=== PATIENT | female | born 1980 | race Caucasian/White ===

== ENCOUNTER 2020-01-29 10:18 | Day surgery (SDC) | payer MEDICAID, OTHER ==
[~2020-01-29] VITALS: Ht 149.9 cm; Wt 35.0 kg
[~2020-01-29 10:18] MED LIST: ACET325T14 PO; IBUP-1223 PO; METH750T87 PO; NITR100C57 PO; OMEP-110 PO; OXYC-302 PO
[2020-01-29 10:38] VITALS: BP 111/76
[2020-01-29] MEDS ORDERED: LACTATED RINGERS 1,000 ML IV SCH (10:38)
[2020-01-29] MEDS ORDERED: CHLORHEXIDINE 15 ML UDC MM STA (10:41)
[2020-01-29] MEDS ORDERED: EPHEDRINE 50 MG/ML, 1ML IVPush PRN (11:30)
[2020-01-29] MEDS ORDERED: hydrALAzine 20 MG/ML, 1ML IV PRN (11:30)
[2020-01-29] MEDS ORDERED: METOCLOPRAMIDE 5 MG/ML, 2ML IVPush PRN (11:30)
[2020-01-29] MEDS ORDERED: LABETALOL 5MG/ML, 20ML IV PRN (11:30)
[2020-01-29] MEDS ORDERED: ACETAMINOPHEN 325 MG TABLET PO PRN (11:30)
[2020-01-29] MEDS ORDERED: MEPERIDINE/PF 25MG/0.5ML IVPush PRN (11:30)
[2020-01-29] MEDS ORDERED: METOPROLOL 1 MG/ML, 5ML IV PRN (11:30)
[2020-01-29] MEDS ORDERED: HALOPERIDOL 5 MG/ML IV PRN (11:30)
[2020-01-29] MEDS ORDERED: KETOROLAC 30 MG/1 ML IVPush PRN (11:30)
[2020-01-29] MEDS ORDERED: ONDANSETRON 2MG/ML, 2ML IVPush PRN (11:30)
[2020-01-29] MEDS ORDERED: HYDROcodone/APAP 7.5-325MG/15ML UDC PO PRN (11:30)
[2020-01-29] MEDS ORDERED: METHOCARBAMOL 1,000 MG in DEXTROSE 5% 100 ML IV PRN (11:30)
[2020-01-29] MEDS ORDERED: EPHEDRINE 50 MG/ML, 1ML IM PRN (11:30)
[2020-01-29] MEDS ORDERED: DIPHENHYDRAMINE 50 MG/ML, 1ML IVPush PRN (11:30)
[2020-01-29] MEDS ORDERED: ALBUTEROL/IPRATROPIUM 2.5MG/0.5MG, 3 ML NPPB PRN (11:30)
[2020-01-29] MEDS ORDERED: HYDROmorphone 1 MG/ML, 1ML INJ IVPush PRN (11:30)
[2020-01-29] MEDS ORDERED: OXYcodone 5 MG/5 ML ORAL.SOL UDC PO PRN (11:30)
[2020-01-29] MEDS ORDERED: MIDAZOLAM 1 MG/ML, 2ML IV PRN (11:30)
[2020-01-29] MEDS ORDERED: BUPIVACAINE/PF-EPI 0.25% 1:200K ONE (11:51)
[2020-01-29] MEDS ORDERED: SILVER NITRATE STICK TP ONE (11:51)
[2020-01-29] MEDS ORDERED: MIDAZOLAM 1 MG/ML, 2ML ONE (11:59)
[2020-01-29] MEDS ORDERED: PROPOFOL 10 MG/ML, 20ML ONE (11:59)
[2020-01-29] MEDS ORDERED: FENTANYL PF 100 MCG/2ML ONE ×2 (11:59→13:56)
[2020-01-29] MEDS ORDERED: ROCURONIUM 10MG/ML,5ML ONE (11:59)
[2020-01-29] MEDS ORDERED: LIDOCAINE-MPF 2% ,5ML ONE (11:59)
[2020-01-29] MEDS ORDERED: GLYCOPYRROLATE 0.2MG/1ML, 5ML ONE (11:59)
[2020-01-29] MEDS ORDERED: DEXAMETHASONE 4 MG/ML, 1ML ONE (11:59)
[2020-01-29] MEDS ORDERED: CEFAZOLIN 1,000 MG ONE (12:00)
[2020-01-29] MEDS ORDERED: ONDANSETRON 2MG/ML, 2ML ONE (12:00)
[2020-01-29] MEDS ORDERED: KETOROLAC 30 MG/1 ML ONE (12:31)
[2020-01-29 13:27] LABS: HCG UR SG 1.021 (1.003-1.030)
[2020-01-29] MEDS ORDERED: ACETAMINOPHEN 650 MG/20.3 ML UDC ONE (13:56)
[2020-01-29] MEDS ORDERED: OXYcodone 5 MG/5 ML ORAL.SOL UDC ONE (13:56)
[2020-01-29] MEDS: FENTANYL PF 100 MCG/2ML IV PRN ×3 (14:00→14:35)
== END 2020-01-29 16:30 | disposition home or self-care (01) ==
LOC: OUT 10:18
PROVIDERS: ATTEND Obstetrics & Gynecology
DX: R10.2 Pelvic and perineal pain (principal); Z11.59 Encounter for screening for other viral diseases; N73.6 Female pelvic peritoneal adhesions (postinfective); N80.0 Endometriosis of uterus; N36.8 Other specified disorders of urethra; R30.0 Dysuria; K21.9 Gastro-esophageal reflux disease without esophagitis; M79.7 Fibromyalgia; Z79.1 Long term (current) use of non-steroidal anti-inflammatories (NSAID); Z79.899 Other long term (current) drug therapy; Z98.51 Tubal ligation status
CPT/HCPCS: 36415; 49329; 81025; 84703; 85025; J0690; J1100; J1885; J2250; J2405; J2704; J3010; U0001

== ENCOUNTER 2020-03-24 20:44 | Emergency (ER) | payer MEDICAID ==
[~2020-03-24] VITALS: Ht 149.9 cm; Wt 36.2 kg
--- NOTE | 2020-03-24 20:56 | NUR ---
PT REPORTS LBP, CHILLS AND SWEATS X2 DAYS. PLACED ON VITAL SIGNS MONITORS. CALL LIGHT WITHIN REACH.
[2020-03-24] MEDS ORDERED: ACETAMINOPHEN 325 MG TABLET ONE (21:23)
[2020-03-24] MEDS ORDERED: SODIUM CHLORIDE 0.9% 1,000ML IVBOLUS ONE ×2 (21:30→22:30)
[2020-03-24] MEDS ORDERED: ACETAMINOPHEN 325 MG TABLET PO ONE (21:30)
[2020-03-24 21:47] LABS: MICROSCOPIC INDICATED
[2020-03-24 21:59] LABS: BASOPHILS # (AUTO) 0.05 x10^3/uL (0-0.1); BASOPHILS % (AUTO) 0 % (0-1); EOSINOPHILS % (AUTO) 0 % (1-7); LYMPHOCYTES # (AUTO) 0.55 x10^3/uL (1-3.4); LYMPHOCYTES % (AUTO) 4 % (22-44); MD NO; MEAN CORPUSCULAR HEMOGLOBIN 31.6 pg (27.0-34.8); MEAN CORPUSCULAR HGB CONC 33.3 g/dL (32.4-35.8); MEAN PLATELET VOLUME 8.4 fL (7.4-10.4); MONOCYTES % (AUTO) 6 % (2-9); NEUTROPHILS % (AUTO) 89 % (42-75); PLATELET COUNT 331 x10^3/uL (130-400); RED BLOOD COUNT 3.77 x10^6/uL (3.82-5.3); RED CELL DISTRIBUTION WIDTH 14.2 % (9.6-15.2)
[2020-03-24 22:13] LABS: ALANINE AMINOTRANSFERASE 13 U/L (12-78); ALBUMIN 3.6 g/dL (3.4-5.0); ANION GAP 9 mmol/L (5-15); CALCIUM 8.8 mg/dL (8.5-10.1); CHLORIDE 106 mmol/L (98-107); CREATININE 0.97 mg/dL (0.55-1.02)
[2020-03-24 22:18] LABS: ALKALINE PHOSPHATASE 71 U/L (45-117); BILIRUBIN,TOTAL 1.3 mg/dL (0.2-1.0); TOTAL PROTEIN 7.8 g/dL (6.4-8.2)
[2020-03-24] MEDS ORDERED: CEFTRIAXONE PMX 1GM/50ML 50 ML ONE (22:24)
[2020-03-24] MEDS ORDERED: CEFTRIAXONE PMX 1GM/50ML 50 ML IV ONE (22:30)
[2020-03-24 22:33] VITALS: BP 105/68
--- NOTE | 2020-03-24 22:33 | NUR ---
IV ABX ADMIN PER MAR AFTER AFTER BLOOD CULTURES DRAW. VSS.
== END 2020-03-24 23:00 | disposition home or self-care (01) ==
LOC: ED 21:05
DX: N30.01 Acute cystitis with hematuria (principal); N10 Acute pyelonephritis; M54.5 Low back pain; R00.0 Tachycardia, unspecified; F17.200 Nicotine dependence, unspecified, uncomplicated
CPT/HCPCS: 36415; 80053; 81001; 83605; 83690; 84145; 84703; 85025; 87040; 87086; 96365; 99284; J0696; J7030; 87186

== ENCOUNTER 2020-03-25 12:32 | Inpatient (IN) | payer MEDICAID ==
[~2020-03-25] VITALS: Ht 149.9 cm; Wt 41.2 kg
[2020-03-25] MEDS ORDERED: CEFTRIAXONE PMX 1GM/50ML 50 ML ONE ×2 (13:11→14:18)
[2020-03-25] MEDS ORDERED: KETOROLAC 30 MG/1 ML ONE (13:11)
[2020-03-25] MEDS ORDERED: ACETAMINOPHEN 500 MG TABLET ONE (13:11)
--- NOTE | 2020-03-25 13:20 | NUR ---
Seymour moore in [facility] - 03/25/20 at [address] BARRERA: PT DOES NOT MEET SEPTIC SHOCK PROTOCOL SO NO FURTHER ORDERS R/T SEPSIS FLOW SHEET.
[2020-03-25 13:27] LABS: BASOPHILS # (AUTO) 0.01 x10^3/uL (0-0.1); BASOPHILS % (AUTO) 0 % (0-1); EOSINOPHILS % (AUTO) 0 % (1-7); LYMPHOCYTES # (AUTO) 0.44 x10^3/uL (1-3.4); LYMPHOCYTES % (AUTO) 3 % (22-44); MD NO; MEAN CORPUSCULAR HEMOGLOBIN 31.8 pg (27.0-34.8); MEAN CORPUSCULAR HGB CONC 33.6 g/dL (32.4-35.8); MEAN CORPUSCULAR VOLUME 94.6 fL (80-100); MEAN PLATELET VOLUME 7.9 fL (7.4-10.4); MONOCYTES # (AUTO) 0.85 x10^3/uL (0.2-0.8); MONOCYTES % (AUTO) 6 % (2-9); NEUTROPHILS # (AUTO) 12.43 x10^3/uL (1.8-6.8); NEUTROPHILS % (AUTO) 91 % (42-75); PLATELET COUNT 305 x10^3/uL (130-400); RED CELL DISTRIBUTION WIDTH 14.2 % (9.6-15.2)
[2020-03-25] MEDS ORDERED: CEFTRIAXONE PMX 1GM/50ML 50 ML IVPB ONE (13:30)
[2020-03-25] MEDS ORDERED: KETOROLAC 30 MG/1 ML IVPush ONE (13:30)
[2020-03-25] MEDS ORDERED: ACETAMINOPHEN 500 MG TABLET PO ONE (13:30)
[2020-03-25] MEDS ORDERED: SODIUM CHLORIDE 0.9% 1,000ML IVBOLUS ONE (13:30)
[2020-03-25 13:40] LABS: ALBUMIN 3.3 g/dL (3.4-5.0); ANION GAP 8 mmol/L (5-15); CALCIUM 8.7 mg/dL (8.5-10.1); CHLORIDE 113 mmol/L (98-107)
[2020-03-25 13:45] LABS: ALANINE AMINOTRANSFERASE 10 U/L (12-78); ALKALINE PHOSPHATASE 66 U/L (45-117); BILIRUBIN,TOTAL 0.9 mg/dL (0.2-1.0); CREATININE 1.02 mg/dL (0.55-1.02); TOTAL PROTEIN 6.6 g/dL (6.4-8.2)
--- NOTE | 2020-03-25 14:02 | NUR ---
PT UPRIGHT ON HOSPITAL BED AWAKE & CALMER AFTER REASSURANCE, RESPONDS APPROP TO STAFF, NAD, COMFORT MEASURES PROVIDED, CALL LIGHT WITHIN REACH.
--- NOTE | 2020-03-25 14:20 | NUR ---
PER LAW: PT DOES NOT MEET SEPTIC SHOCK PROTOCOL SO NO FURTHER ORDERS R/T SEPSIS FLOW SHEET.
[2020-03-25] MEDS ORDERED: POTASSIUM CHLORIDE 20 MEQ TAB.ER.PRT PO ONE (14:30)
[2020-03-25] MEDS ORDERED: POLYETHYLENE GLYCOL 17 GM PACKET PO PRN (14:30)
[2020-03-25] MEDS ORDERED: CEFTRIAXONE PMX 1GM/50ML 50 ML IV ONE (14:30)
[2020-03-25] MEDS ORDERED: ONDANSETRON ODT 4 MG PO PRN (14:30)
[2020-03-25] MEDS ORDERED: IBUPROFEN 600 MG TABLET PO PRN (14:30)
[2020-03-25] MEDS ORDERED: ACETAMINOPHEN 325 MG TABLET PO PRN (14:30)
[2020-03-25] MEDS ORDERED: DOCUSATE 100 MG CAPSULE PO PRN (14:30)
[2020-03-25] MEDS ORDERED: ONDANSETRON 2MG/ML, 2ML IVPush PRN (14:30)
--- NOTE | 2020-03-25 15:02 | NUR ---
PT REMAINS UPRIGHT ON HOSPITAL BED AWAKE & CALM, RESPONDS APPROP TO STAFF, NAD, COMFORT MEASURES PROVIDED, CALL LIGHT WITHIN REACH.
[2020-03-25 15:14] LABS: HCT (SEDRATE) 28.9 % (34.6-47.8)
[2020-03-25] MEDS ORDERED: ENOXAPARIN 40 MG/0.4 ML ONE (15:15)
[2020-03-25] MEDS ORDERED: POTASSIUM CHLORIDE 20 MEQ TAB.ER.PRT ONE (15:15)
[2020-03-25] MEDS: ENOXAPARIN 40 MG/0.4 ML SQ SCH (15:17)
[2020-03-25] MEDS: LACTATED RINGERS 1,000 ML IV SCH (16:18)
--- NOTE | 2020-03-25 17:15 | NUR ---
Pt to be admitted to medical, room 347. Report called to Mirna.
[2020-03-25 18:05] VITALS: BP 108/70
[2020-03-25 20:00] VITALS: BP 93/59
[2020-03-26 00:19] VITALS: BP 114/69
[2020-03-26] MEDS: LACTATED RINGERS 1,000 ML IV SCH (01:33)
[2020-03-26 06:11] LABS: BASOPHILS # (AUTO) 0.02 x10^3/uL (0-0.1); BASOPHILS % (AUTO) 0 % (0-1); EOSINOPHILS # (AUTO) 0.01 x10^3/uL (0-0.4); EOSINOPHILS % (AUTO) 0 % (1-7); LYMPHOCYTES # (AUTO) 0.93 x10^3/uL (1-3.4); LYMPHOCYTES % (AUTO) 10 % (22-44); MD NO; MEAN CORPUSCULAR HEMOGLOBIN 31.8 pg (27.0-34.8); MEAN CORPUSCULAR HGB CONC 33.3 g/dL (32.4-35.8); MEAN CORPUSCULAR VOLUME 95.4 fL (80-100); MEAN PLATELET VOLUME 8.2 fL (7.4-10.4); MONOCYTES # (AUTO) 0.77 x10^3/uL (0.2-0.8); MONOCYTES % (AUTO) 8 % (2-9); NEUTROPHILS # (AUTO) 7.78 x10^3/uL (1.8-6.8); NEUTROPHILS % (AUTO) 82 % (42-75); PLATELET COUNT 239 x10^3/uL (130-400); RED BLOOD COUNT 2.77 x10^6/uL (3.82-5.3); RED CELL DISTRIBUTION WIDTH 14.1 % (9.6-15.2)
[2020-03-26 06:15] LABS: CHLORIDE 117 mmol/L (98-107)
[2020-03-26 06:23] LABS: ALANINE AMINOTRANSFERASE 8 U/L (12-78); ALBUMIN 2.5 g/dL (3.4-5.0); ALKALINE PHOSPHATASE 53 U/L (45-117); ANION GAP 8 mmol/L (5-15); BILIRUBIN,TOTAL 0.7 mg/dL (0.2-1.0); CREATININE 0.65 mg/dL (0.55-1.02); TOTAL PROTEIN 5.7 g/dL (6.4-8.2)
[2020-03-26 06:53] VITALS: BP 111/69
[2020-03-26] MEDS: NICOTINE 14MG/24 HR PATCH.TD24 TD SCH (10:00)
[2020-03-26 13:11] VITALS: BP 115/58
[2020-03-26] MEDS ORDERED: CEFTRIAXONE PMX 2GM/50ML 50 ML IV SCH (14:00)
[2020-03-26] MEDS: ENOXAPARIN 40 MG/0.4 ML SQ SCH (14:48)
[2020-03-26 19:50] VITALS: BP 116/71
[2020-03-27 03:09] VITALS: BP 115/53
[2020-03-27 06:27] LABS: BASOPHILS # (AUTO) 0.04 x10^3/uL (0-0.1); BASOPHILS % (AUTO) 1 % (0-1); EOSINOPHILS # (AUTO) 0.03 x10^3/uL (0-0.4); EOSINOPHILS % (AUTO) 0 % (1-7); LYMPHOCYTES # (AUTO) 1.49 x10^3/uL (1-3.4); LYMPHOCYTES % (AUTO) 18 % (22-44); MD NO; MEAN CORPUSCULAR HEMOGLOBIN 31.7 pg (27.0-34.8); MEAN CORPUSCULAR HGB CONC 33.4 g/dL (32.4-35.8); MEAN CORPUSCULAR VOLUME 94.8 fL (80-100); MONOCYTES # (AUTO) 0.81 x10^3/uL (0.2-0.8); MONOCYTES % (AUTO) 10 % (2-9); NEUTROPHILS # (AUTO) 5.81 x10^3/uL (1.8-6.8); NEUTROPHILS % (AUTO) 71 % (42-75); PLATELET COUNT 280 x10^3/uL (130-400); RED BLOOD COUNT 2.99 x10^6/uL (3.82-5.3); RED CELL DISTRIBUTION WIDTH 14.2 % (9.6-15.2)
[2020-03-27 06:36] LABS: ANION GAP 10 mmol/L (5-15); CHLORIDE 114 mmol/L (98-107)
[2020-03-27 07:15] LABS: % IRON SATURATION 34 % (20-55); CREATININE 0.72 mg/dL (0.55-1.02); IRON LEVEL 70 mcg/dL (50-170); TOTAL IRON BINDING CAPACITY 206 mcg/dL (250-450)
[2020-03-27 08:58] VITALS: BP 120/71
[2020-03-27] MEDS: NICOTINE 14MG/24 HR PATCH.TD24 TD SCH (09:00)
[2020-03-27] MEDS ORDERED: LEVO750T26 PO (10:22)
[2020-03-27] MEDS ORDERED: HYDR-826 PO (10:28)
[2020-03-27] MEDS ORDERED: LEVOFLOXACIN 750 MG TABLET PO ONE (10:30)
== END 2020-03-27 11:48 | disposition home or self-care (01) | DRG 872 ==
LOC: ED 13:40 → EDIP 14:19 → 3N 17:07 → DCLOUNGE 03-27 11:32
PROVIDERS: ADMIT Family Medicine; ATTEND Family Medicine
DX: A41.51 Sepsis due to Escherichia coli [E. coli] (principal); N10 Acute pyelonephritis; D25.9 Leiomyoma of uterus, unspecified; D64.9 Anemia, unspecified; E87.6 Hypokalemia; F06.4 Anxiety disorder due to known physiological condition; F17.200 Nicotine dependence, unspecified, uncomplicated; F41.0 Panic disorder [episodic paroxysmal anxiety]; N20.0 Calculus of kidney; N80.9 Endometriosis, unspecified; G89.29 Other chronic pain; R10.2 Pelvic and perineal pain; Z87.442 Personal history of urinary calculi; Z98.51 Tubal ligation status; Z82.5 Family history of asthma and other chronic lower respiratory diseases
CPT/HCPCS: 36415; 76770; 76830; 80048; 80053; 82607; 82728; 83540; 83550; 83605; 83735; 84145; 85025; 85651; 86140; 87040; 96365; 96375; G0378; J0696; J1650; J1885; J2405; Q0162; J7030; J7120; Q0177

== ENCOUNTER 2020-09-26 12:24 | Emergency (ER) | payer MEDICAID ==
[~2020-09-26] VITALS: Ht 149.9 cm; Wt 35.0 kg
[~2020-09-26 12:24] MED LIST changes: +HYDR-826 PO; +LEVO750T26 PO; -OXYC-302 PO; +OXYC1TAB14 PO
[2020-09-26 12:36] VITALS: BP 117/67
--- NOTE | 2020-09-26 13:46 | NUR ---
PATIENT TO IMAGING.
--- NOTE | 2020-09-26 14:12 | NUR ---
ER PROVIDER AT BEDSIDE TO DISCUSS POC AND DISCHARGE DISPO.
--- NOTE | 2020-09-26 14:33 | NUR ---
Patient given discharge instructions and they have confirmed that they understand the instructions. Patient stable and ambulatory with steady gait from ED to private vehicle.
== END 2020-09-26 14:34 | disposition home or self-care (01) ==
LOC: ED 13:17
DX: S30.0XXA Contusion of lower back and pelvis, initial encounter (principal); G89.11 Acute pain due to trauma; W22.8XXA Striking against or struck by other objects, initial encounter; Y93.89 Activity, other specified; Y92.89 Other specified places as the place of occurrence of the external cause; Y99.8 Other external cause status
CPT/HCPCS: 72110; 72220; 99284